=== PATIENT | male | born 1990 | race Caucasian/White ===

== ENCOUNTER 2023-09-29 22:22 | Emergency (ER) | payer OTHER ==
[~2023-09-29] VITALS: Ht 190.5 cm; Wt 137.0 kg
[2023-09-29 23:00] VITALS: BP 140/77; PULSE 74; RESP 18; TEMP 98; O2SAT 98
[2023-09-30] MEDS ORDERED: TETANUS, DIPHTHERIA, PERTUSSIS VAC/PF 0.5ML (>10YR OLD) IM ONE
[2023-09-30] MEDS: TETANUS, DIPHTHERIA, PERTUSSIS VAC/PF 0.5ML (>10YR OLD) IM ONE (00:31)
== END 2023-09-30 00:33 | disposition home or self-care (01) ==
LOC: ER 22:22
DX: S61.512A Laceration without foreign body of left wrist, initial encounter (principal); J45.909 Unspecified asthma, uncomplicated; W26.8XXA Contact with other sharp object(s), not elsewhere classified, initial encounter; Y93.89 Activity, other specified; Y92.89 Other specified places as the place of occurrence of the external cause; Y99.8 Other external cause status
CPT/HCPCS: 90471; 90715; 99283